=== PATIENT | female | born 1990 | race Asian ===

== ENCOUNTER → 2024-12-01 | Outpatient (CLI) | payer OTHER ==
[~2024-12-01] MED LIST: BUPR75; Hair, Skin & N1 EACH; OXYACE5T PO; PRAHYD1AEA TOP; Verotin-Gr Cap1 EACH PO
== END ==
LOC: LAB 17:24 → LAB SHORT 17:24
DX: O09.90 Supervision of high risk pregnancy, unspecified, unspecified trimester (principal)
CPT/HCPCS: 87081; 87150

== ENCOUNTER 2024-12-23 03:17 | Inpatient (IN) | payer OTHER ==
[2024-12-23] VITALS (13 sets, daily range): BP systolic 108–130; BP diastolic 63–101
[~2024-12-23] VITALS: Ht 157.5 cm; Wt 68.1 kg
[2024-12-23] MEDS ORDERED: OXYTOCIN/RINGER'S LACTATE 500 ML IV ONE (03:25)
[2024-12-23] MEDS ORDERED: Oxytocin 10 Unit / ML Vial IM PRN (03:30)
[2024-12-23] MEDS ORDERED: Carboprost Tromethamine 250 MCG/ML 1ML Amp IM PRN ×2 (03:30→04:15)
[2024-12-23] MEDS ORDERED: Lactated Ringer's 1,000 ML IV PRN (03:30)
[2024-12-23] MEDS ORDERED: Calcium Carbonate 500 MG Tab Chew PO PRN (03:30)
[2024-12-23] MEDS ORDERED: Methylergonovine Maleate 0.2MG / ML 1ML Amp IM PRN ×2 (03:30→04:10)
[2024-12-23] MEDS ORDERED: Misoprostol 200 MCG Tab PR PRN ×2 (03:30→04:10)
[2024-12-23] MEDS ORDERED: Tranexamic Acid 100 ML IV SCH (03:30)
[2024-12-23] MEDS ORDERED: Misoprostol 200 MCG Tab BC PRN ×2 (03:30→04:10)
[2024-12-23] MEDS ORDERED: Acetaminophen 500 MG Tab PO PRN (03:30)
[2024-12-23] MEDS ORDERED: OXYTOCIN/RINGER'S LACTATE 500 ML IV PRN (03:30)
[2024-12-23] MEDS ORDERED: Ondansetron HCl 2 MG / ML 2ML Vial IV PRN (03:30)
[2024-12-23 03:40] LABS: BASOPHILS ABSOLUTE AUTO 0.02 K/mm3 (0.00-0.23); BASOPHILS PERCENT AUTO 0 % (0-2); EOSINOPHILS ABSOLUTE AUTO 0.09 K/mm3 (0.00-0.68); EOSINOPHILS PERCENT AUTO 1 % (0-6); Hematocrit 39.6 % (33.0-51.0); Hemoglobin 14.8 g/dL (11.5-16.0); IMMATURE GRAN ABSOLUTE AUTO 0.07 K/mm3 (0.00-0.10); IMMATURE GRAN PERCENT AUTO 1 % (0-1); LYMPHOCYTES ABSOLUTE AUTO 2.41 K/mm3 (0.84-5.20); LYMPHOCYTES PERCENT AUTO 29 % (21-46); MONOCYTES PERCENT AUTO 6 % (4-13); Mean Corpuscular HGB 34.2 pg (26.0-34.0); Mean Corpuscular HGB Conc 37.4 g/dL (31.5-36.5); Mean Corpuscular Volume 92 fL (80-100); Mean Platelet Volume 9.1 fL (9.1-12.4); NEUTROPHILS ABSOLUTE AUTO 5.15 K/mm3 (1.96-9.15); NEUTROPHILS PERCENT AUTO 63 % (41-73); Platelet Count 236 K/mm3 (150-400); RDW Coefficient Variation 13.8 % (11.7-14.2); RDW Standard Deviation 46.3 fL (35.1-46.3); Red Blood Cell Count 4.33 M/mm3 (3.80-5.20); White Blood Cell Count 8.24 K/mm3 (4.00-11.30)
[2024-12-23] MEDS ORDERED: Oxytocin 10 Unit / ML Vial IM ONE (04:05)
[2024-12-23] MEDS ORDERED: Ketorolac Tromethamine 30mg Vial IV PRN (04:10)
[2024-12-23] MEDS ORDERED: Polyethylene Glycol 3350 17 gm PO PRN (04:10)
[2024-12-23] MEDS ORDERED: Lactated Ringer's 1,000 ML IV SCH (04:10)
[2024-12-23] MEDS ORDERED: Witch Hazel/Glycerin PADS TOP PRN (04:15)
[2024-12-23] MEDS ORDERED: Benzocaine Topical Anesthetic Spray 60GM TOP PRN (04:15)
[2024-12-23] MEDS ORDERED: Acetaminophen 325 MG TABLET PO PRN (04:15)
[2024-12-23] MEDS ORDERED: Misoprostol 100 MCG Tab PO PRN (04:15)
[2024-12-23] MEDS ORDERED: Ibuprofen 400 MG Tab PO PRN (04:15)
[2024-12-23] MEDS ORDERED: OXYTOCIN/RINGER'S LACTATE 500 ML IV SCH (04:15)
[2024-12-23] MEDS ORDERED: FLU VACC TS2024-25(6MOS UP)/PF 45 MCG/0.5 ML SYRINGE IM ONE (04:20)
[2024-12-23] MEDS ORDERED: Prenatal Vit/FE Fumarate/FA 1 Tab PO SCH (09:00)
[2024-12-24 00:11] VITALS: BP 140/82
[2024-12-24 04:01] VITALS: BP 120/63
[2024-12-24 07:13] VITALS: BP 111/69
[2024-12-24] MEDS ORDERED: DOCU100 PO (10:11)
[2024-12-24] MEDS ORDERED: IBUP800 PO (10:11)
--- NOTE | 2024-12-24 11:09 | NUR ---
DC INSTRUCTIONS REVIEWED WITH PATIENT. QUESTIONS ANSWERED, WILL FOLLOW UP TOMORROW AT 10AM HERE AT [facility] WITH [facility].
== END 2024-12-24 11:20 | disposition home or self-care (01) | DRG 807 ==
LOC: OBS 03:17 → BC 03:19 → OBS 03:23 → BC 03:25
PROVIDERS: ADMIT Family Medicine
PROC: 10E0XZZ Delivery of Products of Conception, External Approach (ICD-10-PCS; principal; 2024-12-23)
DX: O62.3 Precipitate labor (principal); Z37.0 Single live birth; O35.8XX0 Maternal care for other (suspected) fetal abnormality and damage, not applicable or unspecified; Z3A.38 38 weeks gestation of pregnancy; O70.0 First degree perineal laceration during delivery
CPT/HCPCS: 36415; 85025; 86850; 86900; 86901; A9270; J1885; J2210; J2590